=== PATIENT | female | born 1995 | race Two or more races ===

== ENCOUNTER 2017-06-11 01:33 | Observation (INO) | payer SELFPAY ==
[2017-06-11 02:18] VITALS: BMI 23.0
[2017-06-11] MEDS ORDERED: Sodium Chloride 0.9% 1,000 ML IV STA (02:18)
--- NOTE | 2017-06-11 02:28 | ED PDOC ---
HPI: Psych/Substance Abuse Time Seen by Provider: 06/11/17 02:09 Chief Complaint (Provider): Intoxication ED Caveat: Intoxicated History/Exam Limitations: intoxication Additional Complaint(s): Bonita Reeves, a 22 year old female, is brought in to the ED by EMS for intoxication. History is limited due to patients intoxicated state. Past Medical History Reviewed: Historical Data, Nursing Documentation, Vital Signs - Family History Family History: States: Unknown Family Hx - Allergies Allergies/Adverse Reactions: Allergies Allergy/AdvReac Type Severity Reaction Status Date / Time Unobtainable Allergy Verified 06/11/17 02:18 Review of Systems Psych: Positive for: Other (Intoxication) Physical Exam - Reviewed Nursing Documentation Reviewed: Yes Vital Signs Reviewed: Yes - Physical Exam Appears: Positive for: Non-toxic, No Acute Distress Head Exam: Positive for: ATRAUMATIC, NORMAL INSPECTION, NORMOCEPHALIC Skin: Positive for: Normal Color, Warm, Dry. Negative for: Rash Eye Exam: Positive for: Normal appearance, EOMI, PERRL ENT: Positive for: Normal ENT Inspection Neck: Positive for: Normal, Painless ROM, Supple Cardiovascular/Chest: Positive for: Regular Rate, Rhythm, Chest Non Tender. Negative for: Tachycardia Respiratory: Positive for: Normal Breath Sounds. Negative for: Rales, Rhonchi, Wheezing, Respiratory Distress Gastrointestinal/Abdominal: Positive for: Normal Exam, Bowel Sounds, Soft. Negative for: Tenderness, Guarding, Rebound Back: Positive for: Normal Inspection. Negative for: L CVA Tenderness, R CVA Tenderness Extremity: Positive for: Normal ROM. Negative for: Tenderness, Deformity, Swelling Neurologic/Psych: Positive for: Alert, Oriented, Gait Medical Decision Making Medical Decision Makin Initial Impression: Alcohol Intoxication Initial Plan: * Alcohol Serum * NS 1000ml IV 500mls/hr * Zofran inj 4mg IVP * [id number] * Reevaluation Patient will be signed out to Dr. Mendoza at 0700 pending sobriety. Scribe~Attestation Documented by Misty Lake acting as a scribe for Orlando Alvarado MD. Provider~Attestation: All medical record entries made by the Scribe were at my direction and personally dictated by me. I have reviewed the chart and agree that the record accurately reflects my personal performance of the history, physical exam, medical decision making, and the department course for this patient. I have also personally directed, reviewed, and agree with the discharge instructions and disposition. ED OBSERVATION Date of observation admission: 06/11/17 Time of observation admission: 14:19 - Observation admission statement Patient is being placed in observation because:: Pending sobriety. - Goals of Observation Goals of observation are:: Clinical Sobriety - Progress Note Progress Note: 06/11/17 15:42 Patient is resting comfortably. 06/11/17 1715 Patient is resting comfortably. Disposition - Clinical Impression Clinical Impression: Alcohol abuse - Disposition Disposition: Transfer of Care Disposition Time: 07:00 Condition: STABLE Patient Signed Over To: Mirian Mendoza Handoff Comments: pending sobriety
[2017-06-11 05:30] VITALS: RESP 18; TEMP 96.4
--- NOTE | 2017-06-11 07:25 | ED PDOC ---
- ECG O2 Sat by Pulse Oximetry: 97 Medical Decision Making Medical Decision Makin:00 Patient signed over to me by Dr. Orlando Alvarado MD pending sobriety. Scribe Attestation: Documented by Conchita Turner, acting as a scribe for Mirian Mendoza MD. Provider Scribe Attestation: All medical record entries made by the Scribe were at my direction and personally dictated by me. I have reviewed the chart and agree that the record accurately reflects my personal performance of the history, physical exam, medical decision making, and the department course for this patient. I have also personally directed, reviewed, and agree with the discharge instructions and disposition. 7.45am - patient awake and alert. steady on her feet. cooperative. may be discharged to family. Her father is scheduled to arrive to pick her up. Disposition Doctor Will See Patient In The: Office Counseled Patient/Family Regarding: Diagnosis, Need For Followup - Clinical Impression Clinical Impression: Alcohol abuse with intoxication - POA Present On Arrival: None - Disposition Disposition: Routine/Home Disposition Time: 08:00 Condition: STABLE
[2017-06-11 09:46] VITALS: BP 127/90; PULSE 90; O2SAT 99
== END 2017-06-11 09:37 | disposition home or self-care (01) ==
LOC: H.ER 01:33 → H.EROBSV 02:19
PROVIDERS: ADMIT Emergency Medicine; ATTEND Emergency Medicine
DX: F10.129 Alcohol abuse with intoxication, unspecified (principal); Y90.8 Blood alcohol level of 240 mg/100 ml or more
CPT/HCPCS: 36415; 82948; 96361; 96374; 96375; 99282; G0378; G0480; J2405; J7040